=== PATIENT | female | born 1985 | race Hispanic/Latino ===

== ENCOUNTER → 2020-05-20 | Outpatient (CLI) | payer BC | END | disposition home or self-care (01) | LOC: LAB 09:04 | PROVIDERS: ATTEND Specialist | DX: Z11.59 Encounter for screening for other viral diseases (principal) | CPT/HCPCS: C9803; U0003 ==

== ENCOUNTER 2022-04-20 12:18 | Emergency (ER) | payer BC, OTHER ==
[~2022-04-20] VITALS: Ht 162.6 cm; Wt 88.5 kg
[2022-04-20 12:19] VITALS: BP 137/80
[2022-04-20] MEDS ORDERED: KETOROLAC 60 MG VIAL (30MG/ML) IM ONE (13:00)
[2022-04-20] MEDS ORDERED: IBUP-2077 PO (14:25)
[2022-04-20] MEDS ORDERED: CYCL10TA16 PO (14:25)
== END 2022-04-20 17:33 | disposition home or self-care (01) ==
LOC: EDH 12:18
DX: M25.511 Pain in right shoulder (principal); M54.2 Cervicalgia; Z90.49 Acquired absence of other specified parts of digestive tract
CPT/HCPCS: 99284; 72040; 73030; 96372; J1885

== ENCOUNTER → 2022-10-08 | Outpatient (CLI) | payer OTHER ==
[~2022-10-08] MED LIST: CYCL10TA16 PO; IBUP-2077 PO
== END | disposition home or self-care (01) ==
LOC: RAH 11:55
PROVIDERS: ATTEND Physical Medicine & Rehabilitation
DX: M54.12 Radiculopathy, cervical region (principal)
CPT/HCPCS: 72050

== ENCOUNTER 2023-07-05 21:32 | Emergency (ER) | payer OTHER ==
[~2023-07-05] VITALS: Ht 162.6 cm; Wt 81.6 kg
[2023-07-05] MEDS ORDERED: ONDANSETRON 4MG INJ IVP SCH (23:30)
[2023-07-05] MEDS ORDERED: 0.9% NACL 500ML IV.SOLN 500 ML IV SCH (23:30)
[2023-07-06] MEDS ORDERED: FAMOTIDINE 20MG TAB ONE (00:27)
[2023-07-06] MEDS ORDERED: ONDA4TAB10 PO (00:28)
[2023-07-06] MEDS ORDERED: BENZ-226 PO (00:28)
[2023-07-06] MEDS ORDERED: FAMOTIDINE 20MG VIAL IV ONE (00:30)
[2023-07-06 00:35] VITALS: BP 124/72; PULSE 62; RESP 20; O2SAT 100
== END 2023-07-06 00:47 | disposition home or self-care (01) ==
LOC: EDH 21:32
DX: U07.1 COVID-19 (principal); R11.2 Nausea with vomiting, unspecified; J45.909 Unspecified asthma, uncomplicated; Z98.51 Tubal ligation status
CPT/HCPCS: 99283; 96374; J7040; J2405

== ENCOUNTER 2023-07-22 17:38 | Emergency (ER) | payer OTHER ==
[~2023-07-22] VITALS: Ht 160 cm; Wt 77.1 kg
[~2023-07-22 17:38] MED LIST changes: +BENZ-226 PO; +ONDA4TAB10 PO
[2023-07-22] MEDS ORDERED: MORPHINE 4 MG SYG IVP ONE (18:30)
[2023-07-22] MEDS ORDERED: ONDANSETRON 4MG INJ IVP ONE (18:30)
[2023-07-22] MEDS ORDERED: 0.9%NACL 1000ML 1,000 ML IV ONE (18:30)
[2023-07-22 18:50] LABS: APPEARANCE,URINE CLEAR (CLEAR); BILIRUBIN,URINE NEGATIVE (NEGATIVE); COLOR,URINE COLORLESS (YELLOW); GLUCOSE, URINE (UA) NEGATIVE (NEGATIVE); KETONES,URINE NEGATIVE (NEGATIVE); LEUKOCYTE ESTERASE ,URINE NEGATIVE Leu/uL (NEGATIVE); NITRATE,URINE NEGATIVE (NEGATIVE); OCCULT BLOOD,URINE NEGATIVE (NEGATIVE); PH,URINE 5.5 (5.0-8.0); PROTEIN,URINE NEGATIVE (NEGATIVE); UROBILINOGEN,URINE 0.2 mg/dL (0.2-1.0)
[2023-07-22 18:59] LABS: ADD UA MICROSCOPIC YES
[2023-07-22 19:00] LABS: WBC,URINE 0-1 /HPF (0-1)
[2023-07-22 20:21] LABS: BASOPHILS # (AUTO) 0.03 K/uL (0.00-0.20); BASOPHILS % (AUTO) 0.6 % (0.0-5.0); EOSINOPHILS # (AUTO) 0.04 K/uL (0.00-0.70); EOSINOPHILS % (AUTO) 0.8 % (0.0-8.0); IMMATURE GRANULOCYTE ABSOLUTE 0.01 K/uL (0-1); LYMPHOCYTES # (AUTO) 2.1 K/uL (1.0-4.8); LYMPHOCYTES % (AUTO) 42.5 % (21.0-51.0); MEAN CORPUSCULAR HEMOGLOBIN 28.5 pg (27.0-33.0); MEAN CORPUSCULAR HGB CONC 33.4 g/dL (32.0-36.0); MEAN CORPUSCULAR VOLUME 85.4 fL (79-99); MONOCYTES # (AUTO) 0.3 K/uL (0.1-1.0); MONOCYTES % (AUTO) 5.8 % (3.0-13.0); NEUTROPHILS # (AUTO) 2.5 K/uL (1.8-7.7); NEUTROPHILS % (AUTO) 50.1 % (40.0-77.0); PLATELET COUNT (AUTO) 206 K/uL (130-400); RED BLOOD CELL COUNT(AUTO) 4.45 MIL/uL (4.00-5.50)
[2023-07-22 20:36] LABS: CREATININE 0.8 mg/dL (0.5-1.5); POTASSIUM 3.4 mmol/L (3.5-5.1)
[2023-07-22 20:41] LABS: ALBUMIN 4.1 g/dL (3.5-5.0); TOTAL PROTEIN, SERUM 7.5 g/dL (6.0-8.3)
[2023-07-22] MEDS ORDERED: IOHEXOL-350 75 ML VIAL IV ONE (21:15)
[2023-07-22] MEDS ORDERED: POTASSIUM BICARB/CIT AC 25 MEQ TABLET.EFF PO ONE (21:30)
[2023-07-22] MEDS ORDERED: FAMO20TA8 PO (22:16)
[2023-07-22 22:45] VITALS: BP 108/78; PULSE 50; RESP 18; O2SAT 98
[2023-07-27] MEDS ORDERED: OZEMPIC SQ (17:04)
== END 2023-07-22 22:46 | disposition home or self-care (01) ==
LOC: EDH 17:38
DX: K29.70 Gastritis, unspecified, without bleeding (principal); R11.2 Nausea with vomiting, unspecified; J45.909 Unspecified asthma, uncomplicated; Z79.899 Other long term (current) drug therapy; Z98.890 Other specified postprocedural states
CPT/HCPCS: 99285; 74177; 96374; 96361; 96375; 84484; 80053; 83690; 85025; 83605; 81001; 36415; 93005; J7030; J2405; J2270; Q9967

== ENCOUNTER 2023-07-29 06:34 | Day surgery (SDC) | payer OTHER ==
[2023-07-27 16:19] LABS: BASOPHILS # (AUTO) 0.02 K/uL (0.00-0.20); BASOPHILS % (AUTO) 0.4 % (0.0-5.0); EOSINOPHILS # (AUTO) 0.08 K/uL (0.00-0.70); EOSINOPHILS % (AUTO) 1.6 % (0.0-8.0); HEMATOCRIT 38.7 % (36-48); IMMATURE GRANULOCYTE ABSOLUTE 0.01 K/uL (0-1); LYMPHOCYTES # (AUTO) 2.2 K/uL (1.0-4.8); LYMPHOCYTES % (AUTO) 42.9 % (21.0-51.0); MEAN CORPUSCULAR HEMOGLOBIN 28.5 pg (27.0-33.0); MEAN CORPUSCULAR HGB CONC 32.6 g/dL (32.0-36.0); MEAN CORPUSCULAR VOLUME 87.6 fL (79-99); MONOCYTES # (AUTO) 0.2 K/uL (0.1-1.0); MONOCYTES % (AUTO) 4.6 % (3.0-13.0); NEUTROPHILS # (AUTO) 2.5 K/uL (1.8-7.7); NEUTROPHILS % (AUTO) 50.3 % (40.0-77.0); PLATELET COUNT (AUTO) 205 K/uL (130-400); RED BLOOD CELL COUNT(AUTO) 4.42 MIL/uL (4.00-5.50); RED CELL DISTRIBUTION WIDTH 13.5 % (11.0-15.5)
[2023-07-27 16:40] LABS: ALBUMIN 3.9 g/dL (3.5-5.0); CREATININE 0.8 mg/dL (0.5-1.5); POTASSIUM 3.9 mmol/L (3.5-5.1)
[2023-07-27 16:59] VITALS: BP 115/61; PULSE 50; RESP 11
[~2023-07-29] VITALS: Ht 162.6 cm; Wt 80.5 kg
[2023-07-29] VITALS (17 sets, daily range): BP systolic 100–123; BP diastolic 55–71; PULSE 54–67; RESP 15–18
[~2023-07-29 06:34] MED LIST changes: -BENZ-226 PO; -CYCL10TA16 PO; -IBUP-2077 PO; -ONDA4TAB10 PO; +OZEMPIC SQ
[2023-07-29] MEDS ORDERED: LACTATED RINGERS 1000ML 1,000 ML IV ONE (07:08)
[2023-07-29] MEDS: CEFAZOLIN SODIUM 2 GM VIAL ONE ×2 (08:36→09:50)
[2023-07-29] MEDS ORDERED: FENTANYL CITRATE PF 50 MCG/1 ML 5ML AMP IV ONE ×3 (09:00→11:59)
[2023-07-29] MEDS ORDERED: ROPIVACAINE 0.5% 5MG/ML 30ML IJ ONE (09:01)
[2023-07-29] MEDS ORDERED: MIDAZOLAM HCL 1 MG/ML 5ML VIAL ONE (09:01)
[2023-07-29] MEDS ORDERED: KETAMINE 50MG/ML SYRINGE 50 MG/ML DISP.SYRIN ONE (09:01)
[2023-07-29] MEDS ORDERED: LIDOCAINE HCL 400MG/20ML VIAL ONE (09:02)
[2023-07-29] MEDS ORDERED: DEXAMETHASONE SOD PHOSPHATE 10MG/ML 1ML VIAL ONE (09:03)
[2023-07-29] MEDS ORDERED: ONDANSETRON 4MG INJ ONE (09:03)
[2023-07-29] MEDS ORDERED: GLYCOPYRROLATE 1 MG/5 ML SYRINGE ONE ×2 (09:03→12:11)
[2023-07-29] MEDS ORDERED: LIDOCAINE PF 100MG/5ML (2%) SYRINGE 5ML ONE (09:03)
[2023-07-29] MEDS ORDERED: SUCCINYLCHOLINE 200MG/10ML SYR ONE (09:03)
[2023-07-29] MEDS ORDERED: ROCURONIUM 10MG/1ML SYR 10 MG/ML ML ONE ×2 (09:04→10:10)
[2023-07-29] MEDS ORDERED: PROPOFOL 10 MG/ML 20ML VIAL IV ONE (09:04)
[2023-07-29] MEDS ORDERED: NEOSTIGMINE 5MG/5ML SYR IV ONE ×2 (09:04→12:06)
[2023-07-29] MEDS ORDERED: EPINEPHRINE PF 1MG (1:1,000) 1 MG/ML AMP ONE (09:38)
[2023-07-29] MEDS ORDERED: EPHEDRINE SULFATE 50 MG/ML AMPULE ONE (09:44)
[2023-07-29] MEDS ORDERED: PHENYLEPHRINE HCL 10 MG/ML 1ML VIAL IV ONE (10:20)
[2023-07-29] MEDS ORDERED: HYDR-4060 PO (12:56)
== END 2023-07-29 14:25 | disposition home or self-care (01) ==
LOC: DAH 06:34
PROVIDERS: ATTEND Student in an Organized Health Care Education/Training Program
DX: M75.21 Bicipital tendinitis, right shoulder (principal); M19.011 Primary osteoarthritis, right shoulder; M94.211 Chondromalacia, right shoulder; S46.011A Strain of muscle(s) and tendon(s) of the rotator cuff of right shoulder, initial encounter; M75.01 Adhesive capsulitis of right shoulder; M75.41 Impingement syndrome of right shoulder; M77.8 Other enthesopathies, not elsewhere classified; Z98.51 Tubal ligation status; Z90.89 Acquired absence of other organs; Z98.891 History of uterine scar from previous surgery; Z98.890 Other specified postprocedural states; Z90.49 Acquired absence of other specified parts of digestive tract; Z98.84 Bariatric surgery status; Z79.82 Long term (current) use of aspirin; Z79.01 Long term (current) use of anticoagulants; Z79.899 Other long term (current) drug therapy; Z82.49 Family history of ischemic heart disease and other diseases of the circulatory system; Z83.3 Family history of diabetes mellitus; X58.XXXA Exposure to other specified factors, initial encounter; Y93.89 Activity, other specified; Y92.89 Other specified places as the place of occurrence of the external cause; Y99.8 Other external cause status
CPT/HCPCS: 82040; 80048; 84703; 85025; 84134; 86140; 36415; 29822; 64415; 29824; 29826; J7030; A4565; A4452; J7120; J3010 ×3; J3490 ×5; J0330; J1100; J2710 ×2; J2001; J0171; J2250; J2704; J2405; J2795; J2371; J0690; A6223; A4649 ×2; A4930; A5120; A4215; A4222; A4221; A4663; A4600